=== PATIENT | female | born 1935 | race Caucasian/White ===

== ENCOUNTER 2017-10-31 23:59 | Emergency (ER) | payer MEDICARE, OTHER, SELFPAY ==
--- NOTE | 2017-11-01 00:03 | DI.RAD.S_ITS ---
PROCEDURE: XR CHEST 1V INDICATIONS: 82-year-old female with near-syncope. TECHNIQUE: One view of the chest was acquired. COMPARISON: [facility], CHEST 1 VIEW, 09/05/2016, 12:17. [facility], , CHEST 1 VIEW, 11/10/2012, 8:37. FINDINGS: Surgical changes and devices: None. Lungs and pleura: No pleural effusions or pneumothorax. Lungs are clear. Mediastinum: Mediastinal contours appear normal. Mild cardiomegaly is unchanged. There is aortic atherosclerosis. Bones and chest wall: No suspicious bony lesions. Overlying soft tissues appear unremarkable. IMPRESSION: Mild cardiomegaly as before, without acute cardiopulmonary disease. Dictated by: Po Oakley M.D. on 11/01/2017 at 7:41 Approved by: Po Oakley M.D. on 11/01/2017 at 7:41
--- NOTE | 2017-11-01 00:04 | ED_ITS ---
HPI - Syncope General Chief Complaint: Syncope Stated Complaint: Syncope Time Seen by Provider: 11/01/17 00:03 Source: patient Mode of arrival: EMS Limitations: no limitations History of Present Illness HPI narrative: The patient was at home prior to arriving here by EMS. She just stood after sitting in a chair, she was headed to bed. Once up she came dizzy, and fell against a wall. She did not go to the floor. She did not injure herself. She was using a walker, she was able to maintain an upright status and she returned to her couch. She had no chest pain, palpitations or dyspnea. She complains of recent flu-like symptoms. However she denies headache, sore throat, cough or congestion. She denies nausea or vomiting. She had 1 day of diarrhea last week, she has no GI symptoms now. She has no pain issues. She does have known CAD. She has not been having any symptoms recently suggestive of CAD. She has no history of syncope. Related Data Home Medications Medication Instructions Recorded Confirmed ipratropium-albuterol [Combivent 2 puff INH PRN #1 inh 11/10/12 11/01/17 Respimat] hydrocodone-acetaminophen [[place]] 1 tab PO SEE INSTRUCTIONS #0 11/21/12 11/01/17 ipratropium-albuterol [Combivent 1 puff INH QID #1 inh 11/21/12 11/01/17 Respimat] Glucose: Test Strips 1 str MISCELLANEOUS PRN PRN 11/01/17 11/01/17 carvedilol [Coreg] 25 mg PO SEE INSTRUCTIONS 11/01/17 11/01/17 esomeprazole magnesium [Nexium] 40 mg PO DAILY 11/01/17 11/01/17 Previous Rx's Medication Instructions Recorded Glucose: Test Strips 0 str QDAY #100 11/30/12 hydrochlorothiazide 50 mg PO QDAY #90 tab 04/30/16 nitroglycerin [Nitrostat] 0.4 mg SUBLINGUAL Q5MIN PRN #4 bot 09/14/16 amlodipine [Norvasc] 5 mg PO BID #180 tab 05/23/17 clopidogrel [Plavix] 75 mg PO QDAY #90 tab 05/23/17 sitagliptin [Januvia] 100 mg PO Q DAY #90 tab 05/23/17 isosorbide mononitrate 120 mg PO QDAY #180 tab 05/26/17 potassium chloride [Klor-Con 10] 10 meq PO BID #180 tab 07/27/17 atorvastatin 80 mg tablet 80 mg PO HS #90 tab 09/15/17 glipizide 5 mg tablet 5 mg PO .bid #180 tab 10/05/17 tiotropium bromide [Spiriva with 18 mcg INH 0600 #1 inh 10/21/17 HandiHaler] Allergies Allergy/AdvReac Type Severity Reaction Status Date / Time YISEL Inhibitors Allergy Mild Verified 11/01/17 00:34 [YISEL INHIBITORS] caffeine [CAFFEINE] Allergy Mild Verified 11/01/17 00:34 codeine [CODEINE] Allergy Mild VOMITING Verified 11/01/17 00:34 lactose [LACTOSE] Allergy Mild Verified 11/01/17 00:34 prednisolone [PREDNISOLONE] Allergy Mild Verified 11/01/17 00:34 simvastatin [SIMVASTATIN] Allergy Mild Verified 11/01/17 00:34 tomato [TOMATO] Allergy Mild Verified 11/01/17 00:34 grapefruit [GRAPEFRUIT] Allergy Unknown Verified 11/01/17 00:34 iodine [IODINE] Allergy Unknown Verified 11/01/17 00:34 lisinopril [LISINOPRIL] Allergy Unknown Verified 11/01/17 00:34 metformin [METFORMIN] Allergy Unknown Verified 11/01/17 00:34 Review of Systems Review of Systems All systems reviewed & are unremarkable except as noted in HPI and below Constitutional Reports as per HPI, Denies chills, Denies fever(s), Denies headache(s), Denies lethargy and Denies weakness Eyes Denies blurry vision, Denies change in vision and Denies loss of vision ENT Ears, Nose, Mouth, and Throat: Denies change in voice, Denies otalgia, Denies facial pain, Denies headache(s), Denies neck pain and Denies sore throat Cardiovascular Reports as per HPI, Denies chest pain, Denies irregular heart rhythm, Denies lightheadedness, Denies palpitations, Denies dyspnea, Denies dyspnea on exertion and Denies orthopnea Respiratory Denies cough, Denies dyspnea, Denies dyspnea on exertion and Denies wheezing Gastrointestinal Gastrointestinal: Denies abdominal pain, Denies change in bowel habits, Denies diarrhea, Denies nausea and Denies vomiting Genitourinary Denies hematuria, Denies flank pain, Denies urinary incontinence and Denies urinary urgency Musculoskeletal Denies neck pain Integumentary/Breasts Denies pruritus, Denies erythema, Denies rash and Denies wounds Neurologic Reports as per HPI, Denies confusion, Denies headache(s), Denies loss of vision and Denies weakness Comments: Near syncope. Psychiatric Denies confusion Endocrine Denies palpitations Allergic/Immunologic Denies wheezing PFSH Medical History Coronary artery disease (Acute) Surgical History History of heart artery stent (Acute) Exam Initial Vital Signs Initial Vital Signs: Vital Signs Temperature 97.9 F 11/01/17 00:06 Pulse Rate 72 11/01/17 00:06 Respiratory Rate 18 11/01/17 00:06 Blood Pressure 154/75 H 11/01/17 00:06 Pulse Oximetry 95 11/01/17 00:06 Const General: cooperative and well developed Nutritional Appearance: well nourished Orientation: alert, awake, oriented x3 and not confused HENMT Head: normocephalic and atraumatic Ears: external ears normal and TM's normal bilaterally Nose: external nose normal and No nasal discharge Face and sinus: sinuses nontender, face symmetric, no sinus tenderness and No dry mucous membranes Mouth: oral mucosae normal and moist mucous membranes Teeth and gingiva: dentition normal Throat: tonsils normal and uvula midline Eyes Conjunctivae: conjunctivae normal Pupils: PERRL EOM: EOM intact bilaterally Neck Neck: No lymphadenopathy and No JVD Chest Chest: normal inspection of the chest Resp Effort & Inspection: normal respiratory effort, able to speak in complete sentences, no respiratory distress and no use of accessory muscles Auscultation: clear to auscultation bilaterally, no rales, no rhonchi and no wheezes Cardio Rate: regular rate Rhythm: regular rhythm Heart Sounds: no click, no gallops, no murmurs and no rubs Pulses: normal peripheral pulses GI Inspection: non-distended Palpation: soft, no hepatosplenomegaly, No guarding, No pulsatile mass and No tender Auscultation: normal bowel sounds Back/Spine/Pelvis Back: No CVA tenderness Cervical Spine: cervical ROM normal and No pain with cervical ROM Thoracic/Lumbar Spine: thoracic and lumbar spine normal to inspection Skin General: no rashes or lesions noted, No jaundice and No petechiae Neuro General: alert, oriented x3, gait normal and no focal motor deficits Speech: speech normal Extrem General: full ROM, no clubbing, cyanosis or edema, no pedal edema and no calf tenderness Course Orders Ordered: ED Orders 11/01/17 EKG-12 Lead Routine 11/01/17 00:00 BNP [B Type Natriuretic Peptide] Stat CBC [Complete Blood Count AUTO DIFF] Stat CMP [Comprehensive Metabolic Panel] Stat Trop I [Troponin I] Stat 11/01/17 00:03 Chest [XR chest 1V] Stat 11/01/17 01:09 Urine Culture Stat Urine Microscopic Stat Discontinued Medications Sodium Chloride (Normal Saline 0.9%) 1,000 mls @ 250 mls/hr IV CONT UDAY Last Infusion: 11/01/17 03:55 Dose: 0 mls/hr Admin: 11/01/17 00:24 Dose: 250 mls/hr Vital Signs - 8 hr 11/01/17 00:06 11/01/17 00:31 11/01/17 01:14 Temperature 97.9 F Pulse Rate 72 66 Pulse Rate [Orthostatic Lying] 70 Pulse Rate [Orthostatic Sitting] 71 Pulse Rate [Orthostatic Standing] 71 Respiratory Rate 18 16 Blood Pressure 154/75 H Blood Pressure [Left Arm] 142/94 H Blood Pressure [Orthostatic Lying] 143/67 H Blood Pressure [Orthostatic Sitting] 132/45 H Blood Pressure [Orthostatic Standing] 121/49 H Pulse Oximetry 95 96 11/01/17 02:33 11/01/17 03:49 Temperature Pulse Rate 69 71 Pulse Rate [Orthostatic Lying] Pulse Rate [Orthostatic Sitting] Pulse Rate [Orthostatic Standing] Respiratory Rate 16 18 Blood Pressure Blood Pressure [Left Arm] 121/49 H 116/50 L Blood Pressure [Orthostatic Lying] Blood Pressure [Orthostatic Sitting] Blood Pressure [Orthostatic Standing] Pulse Oximetry 95 97 MDM - Syncope Medical Records Attestation: I reviewed the patient's medical records. Lab Data Attestation: I reviewed the patient's lab results. Result diagrams: 11/01/17 00:00 11/01/17 00:00 Lab Results 11/01/17 11/01/17 11/01/17 Range/Units 00:00 00:00 00:00 WBC 10.5 (4.5-11.0) X10^3/uL RBC 3.95 L (4.0-5.2) X10^6/uL Hgb 12.2 (12.0-16.0) g/dL Hct 35.2 L (36-46) % MCV 89.3 (80-100) fL MCH 30.9 (26-34) PG MCHC 34.6 (30-36) % RDW 13.2 (11.6-14.8) % Plt Count 294 (150-400) X10^3/uL Neut % (Auto) 66.5 (50-75) % Lymph % (Auto) 22.3 L (25-40) % [place] % (Auto) 6.5 (3-14) % Eos % (Auto) 3.9 (2-4) % Baso % (Auto) 0.8 (0-2) % Neut # (Auto) 7000 H (4604-2866) /uL Sodium 137 (137-145) mmol/L Potassium 3.4 (3.4-5.1) mmol/L Chloride 92 L (98-107) mmol/L Carbon Dioxide 34 H (22-32) mmol/L BUN 14 (7-17) mg/dL Creatinine 0.60 (0.52-1.04) mg/dL Estimated GFR > 60.0 (>60) mL/min BUN/Creatinine Ratio 23.3 H (6-22) Glucose 180 H (80-110) mg/dL Calcium 9.4 (8.4-10.2) mg/dL Total Bilirubin 0.7 (0.2-1.3) mg/dL AST 45 H (14-36) IU/L ALT 22 (9-52) IU/L Alkaline Phosphatase 107 (38-126) U/L Troponin I < 0.012 (0.01-0.034) ng/mL B-Natriuretic Peptide (<100) Total Protein 7.7 (6.3-8.2) g/dL Albumin 4.2 (3.5-5.0) g/dL Globulin 3.5 (1.7-4.1) g/dL Albumin/Globulin Ratio 1.2 (1.0-2.8) Urine RBC (0-5/HPF) Urine WBC (0-5/HPF) Ur Squamous Epith Cells Urine Bacteria (None) Ur Culture Indicated? Micro UA Comment 11/01/17 11/01/17 Range/Units 00:00 01:09 WBC (4.5-11.0) X10^3/uL RBC (4.0-5.2) X10^6/uL Hgb (12.0-16.0) g/dL Hct (36-46) % MCV (80-100) fL MCH (26-34) PG MCHC (30-36) % RDW (11.6-14.8) % Plt Count (150-400) X10^3/uL Neut % (Auto) (50-75) % Lymph % (Auto) (25-40) % [place] % (Auto) (3-14) % Eos % (Auto) (2-4) % Baso % (Auto) (0-2) % Neut # (Auto) (2459-6043) /uL Sodium (137-145) mmol/L Potassium (3.4-5.1) mmol/L Chloride (98-107) mmol/L Carbon Dioxide (22-32) mmol/L BUN (7-17) mg/dL Creatinine (0.52-1.04) mg/dL Estimated GFR (>60) mL/min BUN/Creatinine Ratio (6-22) Glucose (80-110) mg/dL Calcium (8.4-10.2) mg/dL Total Bilirubin (0.2-1.3) mg/dL AST (14-36) IU/L ALT (9-52) IU/L Alkaline Phosphatase (38-126) U/L Troponin I (0.01-0.034) ng/mL B-Natriuretic Peptide 210.0 H (<100) Total Protein (6.3-8.2) g/dL Albumin (3.5-5.0) g/dL Globulin (1.7-4.1) g/dL Albumin/Globulin Ratio (1.0-2.8) Urine RBC None seen (0-5/HPF) Urine WBC 1-5/hpf (0-5/HPF) Ur Squamous Epith Cells 1-5 /hpf Urine Bacteria Many (>30) H (None) Ur Culture Indicated? Specimen cultured Micro UA Comment Not Reportable Imaging Data Chest x-ray: My impression: Normal. ECG Data Attestation: I personally reviewed and interpreted this ECG as follows: (Normal sinus rhythm rate [address] T wave changes. No acute ST changes. No change from prior EKG.) Prior ECG tracings: available for review MDM Narrative Medical decision making narrative: The patient has been asymptomatic since arrival. She was given IV fluids, symptoms suggest orthostatic hypotension. We have done posturals, and gait test prior to discharge, she passes both easily. She will be discharged home. Discharge Plan Departure Patient Disposition: Home, Self-Care Clinical Impression: Near syncope Discharge Date/Time: 11/01/17 04:11 Interventions: ED Discharge Assessment Last Done: 11/01/17 04:10 Instructions: DI for Syncope in Adults (Fainting) Activity Restrictions/Additional Instructions: Our workup revealed nothing obvious of a cardiac, respiratory, or GI in nature. There is no evidence of significant infection. When she returned home, be sure your drinking plenty of water and staying well hydrated. If symptoms return or escalate return to the ER. Consider a follow-up evaluation with your doctor, especially if the flu like symptoms persist. Prescriptions: No Action ipratropium-albuterol [Combivent Respimat] 4 GM mist 2 puff INH PRN Qty: 1 RF: 0 hydrocodone-acetaminophen [[place]] 5 MG/325 MG tablet 1 tab PO SEE INSTRUCTIONS Qty: 0 RF: 0 ipratropium-albuterol [Combivent Respimat] 4 GM mist 1 puff INH QID Qty: 1 RF: 0 Glucose: Test Strips QDAY Qty: 100 RF: 3 hydrochlorothiazide 50 MG tablet 50 mg PO QDAY Qty: 90 RF: 3 nitroglycerin [Nitrostat] 0.4 MG tablet, sublingual 0.4 mg Sublingual Q5MIN PRNQty: 4 RF: PRN clopidogrel [Plavix] 75 MG tablet 75 mg PO QDAY Qty: 90 RF: 1 amlodipine [Norvasc] 5 MG tablet 5 mg PO BID Qty: 180 RF: 3 sitagliptin [Januvia] 100 MG tablet 100 mg PO Q DAY Qty: 90 RF: 3 isosorbide mononitrate 60 MG tablet extended release 24 hr 120 mg PO QDAY Qty: 180 RF: 3 potassium chloride [Klor-Con 10] 10 MEQ tablet extended release 10 meq PO BID Qty: 180 RF: 3 atorvastatin 80 mg tablet 80 mg PO HS Qty: 90 RF: 1 glipizide 5 mg tablet 5 mg PO .bid Qty: 180 RF: 3 tiotropium bromide [Spiriva with HandiHaler] 18 mcg capsule, w/inhalation device 18 mcg INH 0600 Qty: 1 RF: 6 carvedilol [Coreg] 25 MG tablet 25 mg PO SEE INSTRUCTIONS RF: 0 Glucose: Test Strips 1 str miscellaneous PRN PRN (Reason: blood sugar) RF: 0 esomeprazole magnesium [Nexium] 40 mg Capsule,Delayed Release(Dr/Ec) 40 mg PO DAILY RF: 0
[2017-11-01 00:06] VITALS: BP 154/75; PULSE 72; RESP 18; TEMP 36.6; O2SAT 95; BMI 28.3
[2017-11-01 00:18] LABS: Add Manual Diff / Slide Review NO; Basophils Percent Auto 0.8 % (0-2); Eosinophils Percent Auto 3.9 % (2-4); Hematocrit 35.2 % (36-46); Hemoglobin 12.2 g/dL (12.0-16.0); Lymphocytes Percent Auto 22.3 % (25-40); Mean Corpuscular HGB Conc 34.6 % (30-36); Mean Corpuscular Hemoglobin 30.9 PG (26-34); Mean Corpuscular Volume 89.3 fL (80-100); Monocytes Percent Auto 6.5 % (3-14); Neutrophils Absolute Auto 7000 /uL (3000-5900); Neutrophils Percent Auto 66.5 % (50-75); Platelet Count 294 X10^3/uL (150-400); Red Blood Cell Count 3.95 X10^6/uL (4.0-5.2); Red Cell Distribution Width 13.2 % (11.6-14.8); White Blood Cell Count 10.5 X10^3/uL (4.5-11.0)
[2017-11-01 00:22] LABS: Alanine Aminotransferase 22 IU/L (9-52); Albumin 4.2 g/dL (3.5-5.0); Albumin Globulin Ratio 1.2 (1.0-2.8); Alkaline Phosphatase 107 U/L (38-126); BUN Creatinine Ratio 23.3 (6-22); Bilirubin Total 0.7 mg/dL (0.2-1.3); Blood Urea Nitrogen 14 mg/dL (7-17); Calcium 9.4 mg/dL (8.4-10.2); Carbon Dioxide 34 mmol/L (22-32); Chloride 92 mmol/L (98-107); Estimated Glomerular Filt Rate > 60.0 mL/min (>60); Globulin 3.5 g/dL (1.7-4.1); Glucose 180 mg/dL (80-110); Sodium 137 mmol/L (137-145); Total Protein 7.7 g/dL (6.3-8.2)
[2017-11-01 00:23] LABS: HEMOLYSIS 71 (0-50)
[2017-11-01 00:24] LABS: Aspartate Aminotransferase 45 IU/L (14-36); Potassium 3.4 mmol/L (3.4-5.1)
[2017-11-01] MEDS: SODIUM CHLORIDE 0.9% 1,000 ML 250 ML IV (00:24)
[2017-11-01 00:31] VITALS: BP 142/94; PULSE 66; RESP 16; O2SAT 96
[2017-11-01 00:43] LABS: Troponin I < 0.012 ng/mL (0.01-0.034)
[2017-11-01 01:14] VITALS: BP 121/49; BP 132/45; BP 143/67; PULSE 70; PULSE 71
[2017-11-01 01:24] LABS: RBC Urine None Seen (0-5/HPF)
[2017-11-01 01:38] LABS: Bacteria Urine Many (>30); Culture Indicated Urine Specimen Cultured; Squamous Epithelial Cell Urine 1-5 /HPF; WBC Urine 1-5/HPF (0-5/HPF)
--- NOTE | 2017-11-01 01:46 | PC.NURSE ---
Pt used BSC, no dizziness. Pt was able to get self back into bed without any assistance. Pt steady on feet.
--- NOTE | 2017-11-01 02:13 | PC.NURSE ---
Attempted to call daughter for ride. No answer, voicemail left. Pt aware. Pt to wait in ED and try calling at a later time. Pt does not have lipscomb to her house with her.
[2017-11-01 02:33] VITALS: BP 121/49; PULSE 69; RESP 16; O2SAT 95
--- NOTE | 2017-11-01 02:48 | PC.NURSE ---
Pt steady on feet
--- NOTE | 2017-11-01 03:07 | PC.NURSE ---
Attempted to call daughter for second time. No answer.
--- NOTE | 2017-11-01 03:31 | PC.NURSE ---
Daughter returned phone call. She states she will be here shortly to hot die picker patient.
[2017-11-01 03:49] VITALS: BP 116/50; PULSE 71; RESP 18; O2SAT 97
== END 2017-11-01 04:11 | disposition home or self-care (01) ==
PROVIDERS: Emergency Provider Emergency Medicine; PCP Internal Medicine
DX: R55 Syncope and collapse (principal)
CPT/HCPCS: 71045; 80053; 81003; 81015; 83880; 84484; 85025; 87086; 93005; 96360; 96361; 99284; 99285

== ENCOUNTER → 2018-02-20 15:32 | Outpatient (CLI) | payer MEDICARE, OTHER, SELFPAY ==
[2018-02-20 16:10] LABS: Hemoglobin A1C% w Est Avg Glu 6.2 % (4.0-6.0)
[2018-02-20 17:13] LABS: BUN Creatinine Ratio 25.7 (6-22); Blood Urea Nitrogen 18 mg/dL (7-17); Calcium 9.4 mg/dL (8.4-10.2); Carbon Dioxide 37 mmol/L (22-32); Chloride 95 mmol/L (98-107); Estimated Glomerular Filt Rate > 60.0 mL/min (>60); Glucose 117 mg/dL (80-110); HEMOLYSIS < 15 (0-50); Potassium 3.4 mmol/L (3.4-5.1); Sodium 141 mmol/L (137-145)
== END ==
PROVIDERS: PCP Internal Medicine; Visit Provider Internal Medicine
DX: E11.9 Type 2 diabetes mellitus without complications (principal); I10 Essential (primary) hypertension
CPT/HCPCS: 36415; 80048; 83036

== ENCOUNTER 2018-06-16 01:52 | Emergency (ER) | payer MEDICARE, OTHER, SELFPAY ==
[2018-06-16 01:58] VITALS: BP 154/52; PULSE 72; RESP 16; TEMP 36.7; O2SAT 93; BMI 26.8
--- NOTE | 2018-06-16 02:05 | DI.RAD.S_ITS ---
PROCEDURE: XR CHEST 1V INDICATIONS: chest pain TECHNIQUE: One view of the chest was acquired. COMPARISON: [facility], CR, XR CHEST 1V, 11/01/2017, 0:08. FINDINGS: Surgical changes and devices: None. Lungs and pleura: No acute consolidation. Scattered subsegmental atelectasis and/or scarring. No pleural effusions or pneumothorax. Mediastinum: Mediastinal contours appear normal. Heart size is normal. Bones and chest wall: No suspicious bony lesions. Overlying soft tissues appear unremarkable. Bilateral vertically oriented calcified tracts project in the chest wall, presumably from prior [employer] shunts although technically indeterminate IMPRESSION: No acute consolidation. Scattered subsegmental atelectasis and/or scarring. No definite interval change Dictated by: Boyd Nathan M.D. on 06/16/2018 at 8:01 Approved by: Boyd Nathan M.D. on 06/16/2018 at 8:07
[2018-06-16] MEDS: SODIUM CHLORIDE 0.9% 1,000 ML 150 ML IV (02:13)
[2018-06-16 02:14] LABS: INR 1.1 (0.9-1.3); Prothrombin Time 12.4 SECONDS (10.1-12.7)
[2018-06-16 02:17] LABS: PTT Partial Thromboplastin Tim 28 SECONDS (26.4-36.2)
[2018-06-16 02:25] LABS: Add Manual Diff / Slide Review NO; Alanine Aminotransferase 26 IU/L (9-52); Albumin Globulin Ratio 1.3 (1.0-2.8); Alkaline Phosphatase 94 U/L (38-126); Aspartate Aminotransferase 26 IU/L (14-36); Basophils Absolute Auto 100 /uL (0-100); Basophils Percent Auto 0.9 % (0-2); Bilirubin Total 0.7 mg/dL (0.2-1.3); Blood Urea Nitrogen 18 mg/dL (7-17); Calcium 9.5 mg/dL (8.4-10.2); Carbon Dioxide 34 mmol/L (22-32); Chloride 96 mmol/L (98-107); Creatine Kinase 31 U/L (30-135); Eosinophils Absolute Auto 300 /uL (0-450); Eosinophils Percent Auto 2.8 % (2-4); Estimated Glomerular Filt Rate > 60.0 mL/min (>60); Globulin 3.2 g/dL (1.7-4.1); Glucose 150 mg/dL (80-110); HEMOLYSIS 40 (0-50); Hematocrit 35.2 % (36-46); Hemoglobin 12.2 g/dL (12.0-16.0); Lipase 87 U/L (23-300); Lymphocytes Absolute Auto 2800 /uL (1100-4500); Lymphocytes Percent Auto 23.6 % (25-40); Mean Corpuscular HGB Conc 34.5 % (30-36); Mean Corpuscular Hemoglobin 31.3 PG (26-34); Mean Corpuscular Volume 90.7 fL (80-100); Monocytes Absolute Auto 900 /uL (0-900); Monocytes Percent Auto 7.4 % (3-14); Neutrophils Absolute Auto 7800 /uL (1500-7000); Neutrophils Percent Auto 65.3 % (50-75); Platelet Count 278 X10^3/uL (150-400); Potassium 3.5 mmol/L (3.4-5.1); Red Blood Cell Count 3.88 X10^6/uL (4.0-5.2); Red Cell Distribution Width 12.9 % (11.6-14.8); Sodium 139 mmol/L (137-145); Total Protein 7.2 g/dL (6.3-8.2); White Blood Cell Count 11.9 X10^3/uL (4.5-11.0)
[2018-06-16 02:42] LABS: Troponin I < 0.012 ng/mL (0.01-0.034)
[2018-06-16 02:50] LABS: B Type Natriuretic Peptide 207 (<100)
--- NOTE | 2018-06-16 03:13 | ED.CHESTPAIN ---
HPI - Chest Pain General Chief Complaint: Chest Pain Stated Complaint: Chest pain Time Seen by Provider: 06/16/18 02:05 Source: patient and EMS Mode of arrival: EMS Limitations: no limitations History of Present Illness HPI narrative: Patient is an 82-year-old female who presents with left-sided neck and chest pain. She says she does not remember going to sleep but has started hurting. She does have a history of COPD on home oxygen and coronary artery disease which has been chronic and stable. She says her chest hurts every time she turns her neck or takes a deep breath. Not so much when she moves her arm. She got aspirin by EMS and she says that that seems to be helping. She denies any worsening shortness of breath no productive cough or fever. She says that she does have some right-sided pneumonia which she is still getting over but finished antibiotics. MD complaint: chest pain and other (Neck) Onset (ago): hour(s) (1) Duration: constant Pain location: left chest Severity: moderate Relieving factors: remaining still Exacerbating factors: movement Related Data Home Medications Medication Instructions Recorded Confirmed Combivent Respimat 1 puff INH QID #1 inh 11/21/12 06/16/18 hydrocodone-acetaminophen [[place]] 1 tab PO SEE INSTRUCTIONS #0 11/21/12 06/16/18 Glucose: Test Strips 1 str MISCELLANEOUS PRN PRN 11/01/17 06/16/18 esomeprazole magnesium [Nexium] 40 mg PO DAILY 11/01/17 06/16/18 Previous Rx's Medication Instructions Recorded nitroglycerin [Nitrostat] 0.4 mg SUBLINGUAL Q5MIN PRN #4 bot 09/14/16 potassium chloride [Klor-Con 10] 10 meq PO BID #180 tab 07/27/17 hydrochlorothiazide 50 mg tablet 50 mg PO QDAY #90 tab 12/02/17 glyburide 5 mg tablet 5 mg PO BID #180 tab 12/14/17 Glucose: Test Strips 0 str QDAY #100 01/10/18 atorvastatin 80 mg tablet 80 mg PO HS #90 tab 03/21/18 tiotropium bromide 18 mcg capsule 18 mcg INHALATION 0600 #1 inh 04/18/18 with inhalation device Januvia 100 mg PO Q DAY #90 tab 05/22/18 amlodipine [Norvasc] 5 mg PO BID #180 tab 05/22/18 carvedilol 25 mg tablet 25 mg PO SEE INSTRUCTIONS #270 tab 05/22/18 clopidogrel [Plavix] 75 mg PO QDAY #90 tab 05/22/18 isosorbide mononitrate 120 mg PO QDAY #180 tab 05/22/18 Allergies Allergy/AdvReac Type Severity Reaction Status Date / Time YISEL Inhibitors Allergy Mild Verified 06/16/18 02:21 [YISEL INHIBITORS] caffeine [CAFFEINE] Allergy Mild Verified 06/16/18 02:21 codeine [CODEINE] Allergy Mild VOMITING Verified 06/16/18 02:21 lactose [LACTOSE] Allergy Mild Verified 06/16/18 02:21 prednisolone [PREDNISOLONE] Allergy Mild Verified 06/16/18 02:21 simvastatin [SIMVASTATIN] Allergy Mild Verified 06/16/18 02:21 tomato [TOMATO] Allergy Mild Verified 06/16/18 02:21 grapefruit [GRAPEFRUIT] Allergy Unknown Verified 06/16/18 02:21 iodine [IODINE] Allergy Unknown Verified 06/16/18 02:21 lisinopril [LISINOPRIL] Allergy Unknown Verified 06/16/18 02:21 metformin [METFORMIN] Allergy Unknown Verified 06/16/18 02:21 glipizide AdvReac Mild dizziness, Verified 06/16/18 02:21 spells Review of Systems Review of Systems ROS Unobtainable: All systems reviewed & are unremarkable except as noted in HPI and below Constitutional Denies chills, Denies fever(s), Denies lethargy and Denies weakness ENT Ears, Nose, Mouth, and Throat: Denies change in voice, Denies neck pain and Denies sore throat Cardiovascular Reports as per HPI, Reports chest pain, Denies dyspnea and Denies dyspnea on exertion Respiratory Denies cough, Denies dyspnea, Denies dyspnea on exertion and Denies wheezing Gastrointestinal Gastrointestinal: Denies abdominal pain, Denies change in bowel habits, Denies diarrhea, Denies nausea and Denies vomiting Musculoskeletal Denies neck pain Integumentary/Breasts Denies pruritus, Denies erythema, Denies rash and Denies wounds Neurologic Denies weakness Hematologic/Lymphatic Denies easy bruising Allergic/Immunologic Denies wheezing FOR[facility]LY [facility] Medical History Peripheral vascular disease (Chronic) Type 2 diabetes mellitus without complication (Chronic) Hyperlipidemia (Chronic) Essential hypertension (Chronic) Coronary artery disease (Chronic) Type 2 diabetes mellitus with hyperglycemia (Chronic 03/06/12) Hypoxemia (Chronic 08/23/13) Chronic obstructive pulmonary disease (Chronic 01/11/14) Surgical History History of heart artery stent (Resolved) Social History Smoking Status: Former smoker Social History Smoking Status: Former smoker Exam Initial Vital Signs Initial Vital Signs: Vital Signs Temperature 98.0 F 06/16/18 01:58 Pulse Rate 72 06/16/18 01:58 Respiratory Rate 16 06/16/18 01:58 Blood Pressure 154/52 H 06/16/18 01:58 Pulse Oximetry 93 06/16/18 01:58 GENERAL: Alert pleasant elderly female no acute distress HEENT: Head atraumatic,EOMI, pupils reactive, face symmetric, NECK: No vertebral tenderness no step-off is pain is reproducible when she turns her neck CARDIOVASCULAR: Regular rate and rhythm without murmurs, rubs or gallops. RESPIRATORY: Breath sounds equal bilaterally, no wheezes rales or rhonchi. ABDOMEN: Soft nontender no guarding or rebound EXTREMITIES: Normal range of motion, no clubbing or edema. Neurovascularly intact NEUROLOGICAL: Alert and oriented x4.Normal gait and speech. Cranial nerves II through XII grossly intact. SKIN: Warm, dry, no laceration, no petechiae, no rashes or lesions. Course Orders Ordered: ED Orders 06/16/18 01:50 B Type Natriuretic Peptide Stat Complete Blood Count AUTO DIFF Stat Comprehensive Metabolic Panel Stat Lipase Stat Partial Thromboplastin Time Stat Prothrombin Time INR Stat Troponin & CK Cardiac Panel Stat 06/16/18 02:05 XR chest 1V Stat EKG-12 Lead Stat 06/16/18 03:50 EKG-12 Lead Stat 06/16/18 04:53 Troponin I Stat 06/16/18 05:40 Urine Culture Stat Urine Microscopic Stat Sodium Chloride (Normal Saline 0.9%) 1,000 mls @ 150 mls/hr IV CONT UDAY Last Admin: 06/16/18 02:13 Dose: 150 mls/hr Discontinued Medications Acetaminophen (Tylenol) 650 mg PO NOW ONE Stop: 06/16/18 03:51 Last Admin: 06/16/18 03:52 Dose: 650 mg Vital Signs - 8 hr 06/16/18 01:58 06/16/18 03:30 06/16/18 05:05 Temperature 98.0 F Pulse Rate 72 63 63 Respiratory Rate 16 18 14 Blood Pressure 154/52 H Blood Pressure [Left Arm] 129/71 130/45 L Pulse Oximetry 93 97 96 MDM - Chest Pain Lab Data Attestation: I reviewed the patient's lab results. Result diagrams: 06/16/18 01:50 06/16/18 01:50 Lab Results 06/16/18 06/16/18 06/16/18 Range/Units 01:50 01:50 01:50 WBC 11.9 H (4.5-11.0) X10^3/uL RBC 3.88 L (4.0-5.2) X10^6/uL Hgb 12.2 (12.0-16.0) g/dL Hct 35.2 L (36-46) % MCV 90.7 (80-100) fL MCH 31.3 (26-34) PG MCHC 34.5 (30-36) % RDW 12.9 (11.6-14.8) % Plt Count 278 (150-400) X10^3/uL Neut % (Auto) 65.3 (50-75) % Lymph % (Auto) 23.6 L (25-40) % Wells % (Auto) 7.4 (3-14) % Eos % (Auto) 2.8 (2-4) % Baso % (Auto) 0.9 (0-2) % Neut # (Auto) 7800 H (4095-5565) /uL Lymph # (Auto) 2800 (0424-8808) /uL Wells # (Auto) 900 (0-900) /uL Eos # (Auto) 300 (0-450) /uL Baso # (Auto) 100 (0-100) /uL PT 12.4 (10.1-12.7) SECONDS INR 1.1 (0.9-1.3) APTT 28 (26.4-36.2) SECONDS Sodium 139 (137-145) mmol/L Potassium 3.5 (3.4-5.1) mmol/L Chloride 96 L (98-107) mmol/L Carbon Dioxide 34 H (22-32) mmol/L BUN 18 H (7-17) mg/dL Creatinine 0.60 (0.52-1.04) mg/dL Estimated GFR > 60.0 (>60) mL/min BUN/Creatinine Ratio 30.0 H (6-22) Glucose 150 H (80-110) mg/dL Calcium 9.5 (8.4-10.2) mg/dL Total Bilirubin 0.7 (0.2-1.3) mg/dL AST 26 (14-36) IU/L ALT 26 (9-52) IU/L Alkaline Phosphatase 94 (38-126) U/L Total Creatine Kinase 31 (30-135) U/L CK-MB (CK-2) TNP CK-MB (CK-2) Rel Index TNP Troponin I < 0.012 (0.01-0.034) ng/mL B-Natriuretic Peptide 207 H (<100) Total Protein 7.2 (6.3-8.2) g/dL Albumin 4.0 (3.5-5.0) g/dL Globulin 3.2 (1.7-4.1) g/dL Albumin/Globulin Ratio 1.3 (1.0-2.8) Lipase 87 (23-300) U/L Urine RBC (0-5/HPF) Urine WBC (0-5/HPF) Ur Squamous Epith Cells Urine Bacteria (None) Ur Culture Indicated? 06/16/18 06/16/18 Range/Units 04:53 05:40 WBC (4.5-11.0) X10^3/uL RBC (4.0-5.2) X10^6/uL Hgb (12.0-16.0) g/dL Hct (36-46) % MCV (80-100) fL MCH (26-34) PG MCHC (30-36) % RDW (11.6-14.8) % Plt Count (150-400) X10^3/uL Neut % (Auto) (50-75) % Lymph % (Auto) (25-40) % Wells % (Auto) (3-14) % Eos % (Auto) (2-4) % Baso % (Auto) (0-2) % Neut # (Auto) (1622-4425) /uL Lymph # (Auto) (8181-9543) /uL Wells # (Auto) (0-900) /uL Eos # (Auto) (0-450) /uL Baso # (Auto) (0-100) /uL PT (10.1-12.7) SECONDS INR (0.9-1.3) APTT (26.4-36.2) SECONDS Sodium (137-145) mmol/L Potassium (3.4-5.1) mmol/L Chloride (98-107) mmol/L Carbon Dioxide (22-32) mmol/L BUN (7-17) mg/dL Creatinine (0.52-1.04) mg/dL Estimated GFR (>60) mL/min BUN/Creatinine Ratio (6-22) Glucose (80-110) mg/dL Calcium (8.4-10.2) mg/dL Total Bilirubin (0.2-1.3) mg/dL AST (14-36) IU/L ALT (9-52) IU/L Alkaline Phosphatase (38-126) U/L Total Creatine Kinase (30-135) U/L CK-MB (CK-2) CK-MB (CK-2) Rel Index Troponin I < 0.012 (0.01-0.034) ng/mL B-Natriuretic Peptide (<100) Total Protein (6.3-8.2) g/dL Albumin (3.5-5.0) g/dL Globulin (1.7-4.1) g/dL Albumin/Globulin Ratio (1.0-2.8) Lipase (23-300) U/L Urine RBC None seen (0-5/HPF) Urine WBC 10-30/hpf H (0-5/HPF) Ur Squamous Epith Cells 1-5 /hpf Urine Bacteria Many (>30) H (None) Ur Culture Indicated? Specimen cultured Urine Dip Bedside Urine Glucose Negative Bedside Urine Bilirubin - Negative Bedside Urine Ketone - Negative Urine Specific Conner 1.015 Bedside Urine Occult Blood - Negative Bedside Urine pH 6.5 Bedside Urine Protein - Negative Bedside Urine Urobilinogen - Negative Bedside Urine Nitrite + Positive Bedside Urine Leukocytes ++ 125 Esterase Imaging Data Chest x-ray: Attestation: I personally reviewed and interpreted this imaging study as follows: My impression: Hyperinflated lungs questionable right lower lobe pneumonia possibly resolving no acute cardiopulmonary process ECG Data Attestation: I personally reviewed and interpreted this ECG as follows: Prior ECG tracings: available for review Interpretation: Sinus rhythm rate 66 AL interval 1 75 wide complex similar to previous EKG EKG 2. Sinus rhythm rate 59 here interval [address] changes similar to prior MDM Narrative Medical decision making narrative: Patient has been chest pain and neck pain free since she arrived in the ED. Her chest pain actually started from her neck radiated down to her left chest as it was worse with movement. At this time I believe this to be musculoskeletal rather than cardiac. Discharge Plan Departure Patient Disposition: Home Clinical Impression: Acute cervical myofascial strain Qualifiers: Encounter type: initial encounter Qualified Code(s): S16.1XXA - Strain of muscle, fascia and tendon at neck level, initial encounter Instructions: DI for Cervical Muscle Strain Activity Restrictions/Additional Instructions: *You have been diagnosed with cervical strain *What to do: You're heart was evaluated, chest x-ray. His is seems to be more musculoskeletal. Do some slight neck stretching and heating pad. *Continue to take medications as directed Tylenol 650 mg every 4-6 hours if needed for pain *Follow up with your primary care provider in 2-3 days *Return to ER if you should have increasing neck or chest pain, shortness of breath is, numbness tingling weakness or any new, worsening or concerning symptoms Prescriptions: No Action hydrocodone-acetaminophen [[place]] 5 MG/325 MG tablet 1 tab PO SEE INSTRUCTIONS Qty: 0 RF: 0 Combivent Respimat 4 GM mist 1 puff INH QID Qty: 1 RF: 0 nitroglycerin [Nitrostat] 0.4 MG tablet, sublingual 0.4 mg Sublingual Q5MIN PRNQty: 4 RF: PRN potassium chloride [Klor-Con 10] 10 MEQ tablet extended release 10 meq PO BID Qty: 180 RF: 3 hydrochlorothiazide 50 mg tablet 50 mg PO QDAY Qty: 90 RF: 3 glyburide 5 mg tablet 5 mg PO BID Qty: 180 RF: 3 Glucose: Test Strips QDAY Qty: 100 RF: 3 atorvastatin 80 mg tablet 80 mg PO HS Qty: 90 RF: 3 tiotropium bromide [Spiriva with HandiHaler] 18 mcg capsule, w/inhalation device 18 mcg INHALATION 0600 Qty: 1 RF: 6 clopidogrel [Plavix] 75 mg tablet 75 mg PO QDAY Qty: 90 RF: 3 isosorbide mononitrate 60 mg tablet extended release 24 hr 120 mg PO QDAY Qty: 180 RF: 3 carvedilol [Coreg] 25 mg tablet 25 mg PO SEE INSTRUCTIONS Qty: 270 RF: 3 amlodipine [Norvasc] 5 mg tablet 5 mg PO BID Qty: 180 RF: 3 Januvia 100 mg tablet 100 mg PO Q DAY Qty: 90 RF: 3 Glucose: Test Strips 1 str miscellaneous PRN PRN (Reason: blood sugar) RF: 0 esomeprazole magnesium [Nexium] 40 mg Capsule,Delayed Release(Dr/Ec) 40 mg PO DAILY RF: 0 Referrals: Julius Randle MD [Primary Care Provider] -
[2018-06-16 03:30] VITALS: BP 129/71; PULSE 63; RESP 18; O2SAT 97
[2018-06-16] MEDS: ACETAMINOPHEN 325 MG TABLET 650 MG PO (03:52)
[2018-06-16 05:05] VITALS: BP 130/45; PULSE 63; RESP 14; O2SAT 96
[2018-06-16 05:22] LABS: Troponin I < 0.012 ng/mL (0.01-0.034)
[2018-06-16 05:57] LABS: RBC Urine None Seen (0-5/HPF)
--- NOTE | 2018-06-16 06:02 | PC.NURSE ---
Attempted to call daughter for ride, left voicemail.
[2018-06-16 06:07] LABS: Bacteria Urine Many (>30); Squamous Epithelial Cell Urine 1-5 /HPF; WBC Urine 10-30/HPF (0-5/HPF)
[2018-06-16 06:08] LABS: Culture Indicated Urine Specimen Cultured
[2018-06-16 07:02] VITALS: BP 124/60; PULSE 60; RESP 18; O2SAT 97
== END 2018-06-16 07:26 | disposition home or self-care (01) ==
PROVIDERS: Emergency Provider Emergency Medicine; PCP Internal Medicine
DX: S16.1XXA Strain of muscle, fascia and tendon at neck level, initial encounter (principal); R07.89 Other chest pain
CPT/HCPCS: 36415; 71045; 80053; 81003; 81015; 82550; 83690; 83880; 84484; 85025; 85610; 85730; 87077; 87086; 87186; 93005; 96360; 96361; 99284; 99285

== ENCOUNTER → 2018-11-07 08:38 | Outpatient (CLI) | payer MEDICARE, OTHER, SELFPAY ==
[2018-11-07 09:44] LABS: Hemoglobin A1C% w Est Avg Glu 6.1 % (4.0-6.0)
[2018-11-07 10:10] LABS: BUN Creatinine Ratio 24.3 (6-22); Blood Urea Nitrogen 17 mg/dL (7-17); Carbon Dioxide 35 mmol/L (22-32); Chloride 98 mmol/L (98-107); Estimated Glomerular Filt Rate > 60.0 mL/min (>60); Glucose 169 mg/dL (80-110); HEMOLYSIS < 15 (0-50); Potassium 3.3 mmol/L (3.4-5.1); Sodium 139 mmol/L (137-145)
== END ==
PROVIDERS: PCP Internal Medicine; Visit Provider Internal Medicine
DX: E11.65 Type 2 diabetes mellitus with hyperglycemia (principal); I10 Essential (primary) hypertension
CPT/HCPCS: 36415; 80048; 83036